=== PATIENT | male | born 1960 | race Caucasian/White ===

== ENCOUNTER 2016-08-19 09:47 | Day surgery (SDC) | payer OTHER ==
[2016-08-19] MEDS ORDERED: LACTATED RINGERS 1,000 ML IV ONE ×2 (10:14→11:25)
[2016-08-19] MEDS ORDERED: MIDAZOLAM 2 MG/2 ML VIAL IVP ONE (10:48)
[2016-08-19] MEDS ORDERED: fentaNYL 250 MCG/5 ML VIAL IVP ONE (10:48)
== END 2016-08-19 09:48 | disposition home or self-care (01) ==
PROC: 0DJD8ZZ Inspection of Lower Intestinal Tract, Via Natural or Artificial Opening Endoscopic (ICD-10-PCS; principal; 2016-08-19 12:00)
DX: Z12.11 Encounter for screening for malignant neoplasm of colon (principal); K57.30 Diverticulosis of large intestine without perforation or abscess without bleeding; K64.8 Other hemorrhoids; Z86.010 Personal history of colon polyps
CPT/HCPCS: 45378; J3010; J7120

== ENCOUNTER 2017-04-21 17:47 | Outpatient (CLI) | payer OTHER ==
[2017-04-21] MEDS ORDERED: IOPAMIDOL-300 50 ML VIAL ONE (18:00)
[2017-04-21] MEDS ORDERED: IOPAMIDOL-300 100 ML VIAL ONE (18:00)
[2017-04-21] MEDS ORDERED: IOPAMIDOL-300 50 ML VIAL PO ONE (18:15)
[2017-04-21] MEDS ORDERED: IOPAMIDOL-300 100 ML VIAL IVP ONE (19:51)
--- NOTE | 2017-04-22 11:14 | CT Report ---
CT ABDOMEN AND PELVIS WITH CONTRAST: 04/21/2017 CLINICAL INDICATION: Left lower quadrant pain. COMPARISON: 11/12/2014 TECHNIQUE: Axial CT images of the abdomen and pelvis were obtained with 100 mL Isovue-300 intravenou sly. Oral contrast was also administered. In accordance with CT protocol optimization, one or more of the following dose reduction techniques w ere utilized for this exam: automated exposure control, adjustment of mA and/or KV based on patient size, or use of iterative reconstructive technique. FINDINGS: Limited evaluation of the lung bases is unremarkable. Abdomen: The liver, spleen, pancreas, and adrenal glands are unremarkable. The kidneys again demons trate small nonobstructing calculi. No hydronephrosis or hydroureter is seen. No bowel dilatation, free gas, or free fluid is present. The appendix is seen in the right lower quadrant, and is normal in caliber. Pelvis: A few scattered diverticula are seen. There is no CT evidence of diverticulitis. No pelvic free fluid or adenopathy is present. The urinary bladder appears unremarkable. Osseous structures demonstrate degenerative changes. IMPRESSION: NO EVIDENT ETIOLOGY FOR PATIENT'S LEFT LOWER QUADRANT PAIN. DIVERTICULOSIS, WITHOUT CT EVIDENCE OF DIVERTICULITIS. NONOBSTRUCTING BILATERAL RENAL CALCULI. NO HYDRONEPHROSIS. JOB #: [id number] EXT JOB #:[id number]
== END 2017-04-21 17:48 | disposition home or self-care (01) ==
LOC: DI 17:47
PROVIDERS: ATTEND Family Medicine
DX: R10.32 Left lower quadrant pain (principal); K57.90 Diverticulosis of intestine, part unspecified, without perforation or abscess without bleeding; N20.0 Calculus of kidney
CPT/HCPCS: 74177; Q9967

== ENCOUNTER 2017-08-15 08:33 | Outpatient (CLI) | payer OTHER | END 2017-08-15 08:34 | disposition critical access hospital (66) | LOC: EMS 08:33 | PROVIDERS: ATTEND Surgery | DX: R10.9 Unspecified abdominal pain (principal) | CPT/HCPCS: A0425; A0429 ==

== ENCOUNTER 2017-08-15 09:09 | Day surgery (SDC) | payer OTHER ==
[2017-08-15] MEDS ORDERED: ONDANSETRON 4 MG/2 ML VIAL IVP STA (09:24)
[2017-08-15] MEDS ORDERED: SODIUM CHLORIDE 0.9% 1,000 ML IV ONE ×2 (09:24→12:25)
[2017-08-15] MEDS ORDERED: HYDROmorphone 1 MG/ML SYRINGE IVP STA (09:24)
[2017-08-15 09:35] LABS: BASOPHILS % (AUTO) 0.2 %; EOSINOPHILS % (AUTO) 0.2 %; HGB - HEMOGLOBIN 16.4 g/dL (14.0-18.0); LYMPHOCYTES # (AUTO) 0.7 10^3/uL (1.5-3.5); LYMPHOCYTES % (AUTO) 7.4 %; MEAN CORPUSCULAR HEMOGLOBIN 32.4 pg (27.0-31.0); MEAN CORPUSCULAR HGB CONC 35.1 g/dL (32.0-36.0); MEAN CORPUSCULAR VOLUME 92.3 fL (80.0-94.0); MEAN PLATELET VOLUME 8.9 fL (7.4-11.4); MONOCYTES # (AUTO) 0.7 10^3/uL (0.0-1.0); MONOCYTES % (AUTO) 6.8 %; NEUTROPHILS # (AUTO) 8.7 10^3/uL (1.5-6.6); NEUTROPHILS % (AUTO) 85.4 %; PLT - PLATELET COUNT 206 10^3/uL (130-450); RED BLOOD COUNT 5.04 10^6/uL (4.70-6.10); WHITE BLOOD COUNT 10.2 x10^3/uL (4.8-10.8)
[2017-08-15 09:47] LABS: ALBUMIN 5.4 g/dL (3.2-5.5); ALBUMIN/GLOBULIN RATIO 2.2 (1.0-2.2); BILIRUBIN,TOTAL 1.5 mg/dL (0.2-1.0); CALCIUM 9.7 mg/dL (8.5-10.3); TOTAL PROTEIN 7.9 g/dL (6.7-8.2)
[2017-08-15] MEDS ORDERED: IOPAMIDOL-300 100 ML VIAL ONE (09:51)
[2017-08-15] MEDS ORDERED: IOPAMIDOL-300 100 ML VIAL IVP ONE (10:18)
[2017-08-15 10:27] LABS: BILIRUBIN,URINE NEGATIVE (NEGATIVE); GLUCOSE, URINE (UA) NEGATIVE (NEGATIVE); KETONES,URINE (UA) 15 mg/dL (NEGATIVE); LEUKOCYTE ESTERASE, URINE NEGATIVE (NEGATIVE); NITRITE,URINE NEGATIVE (NEGATIVE); OCCULT BLOOD,URINE NEGATIVE (NEGATIVE); PROTEIN,URINE TRACE mg/dL (NEGATIVE); UROBILINOGEN,URINE 0.2 (NORMAL) E.U./dL (NORMAL)
[2017-08-15 10:33] LABS: CLARITY,URINE CLEAR (CLEAR)
--- NOTE | 2017-08-15 10:57 | CT Report ---
EXAM: CT ABDOMEN AND PELVIS EXAM DATE: 08/15/2017 10:19 AM. CLINICAL HISTORY: RLQ abdominal pain, clinical concern for acute appendicitis. COMPARISONS: 04/21/2017. TECHNIQUE: Routine helical CT imaging was performed through the abdomen and pelvis. IV contrast: 100M L OF ISOVUE 300. Enteric contrast: No. Reconstructions: Coronal and sagittal. In accordance with CT protocol optimization, one or more of the following dose reduction techniques w ere utilized for this exam: automated exposure control, adjustment of mA and/or KV based on patient s ize, or use of iterative reconstructive technique. FINDINGS: Lung Bases/lower chest: The small hiatal hernia is again noted. Liver: Normal. No masses. Gallbladder/Bile Ducts: Unremarkable. Spleen: Normal. Pancreas: Normal. Adrenal Glands: Normal. Kidneys: Multiple right intra-renal stones and one left intrarenal stone, 2-4 mm again noted. No mass es or hydronephrosis. Peritoneal Cavity/Bowel: There is new enlarged appendiceal tip, 1.3 cm, with hyperemic changes and ne w santy-appendiceal fat stranding, which is located right lateral to the proximal ascending colon. No free or loculated fluid, free air or adenopathy. There is mild colon diverticulosis without diverticu litis; no small bowel dilatation or acute inflammatory process. Pelvic Organs: The bladder and visualized pelvic organs are within normal limits. Vasculature: No aneurysms or other significant abnormality. Bones: No bony destructive abnormality. There is again moderate to severe degenerative disk disease a t L4-L5. IMPRESSION: 1. New finding of acute appendicitis without evidence of perforation or abscess formation. 2. No significant dilatation of the multiple bilateral intrarenal stones without hydronephrosis. 3. Small hiatal hernia, similar to the prior exam. 4. Moderate to severe degenerative disk disease in the L4-L5. [facility] Referring Provider Line: [phone] SITE ID: [id number]
[2017-08-15] MEDS ORDERED: PIPERACILLIN/TAZOBACTAM 3.375 GM in SODIUM CHLORIDE 0.9% MINIBAG 100 ML IV STA (11:13)
--- NOTE | 2017-08-15 11:14 | ED Physician Documentation ---
PD HPI ABD PAIN - Stated complaint Stated Complaint: ABD PX - Chief complaint Chief Complaint: Abd Pain - History obtained from History obtained from: Patient - History of Present Illness Timing - onset: Yesterday Timing - details: Gradual onset Quality: Pain Location: RLQ Worsened by: Moving, Breathing, Palpation Associated symptoms: Nausea. 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 His abdominal pain started yesterday and was more generalized, but became localized to the right lower quadrant this morning. He denies fever or dysuria. He reports nausea, without vomiting. His pain is worse with movement or inspiration. His last oral intake was last night. He has had no abdominal surgery. Review of Systems Constitutional: denies: Fever Nose: denies: Congestion Cardiac: denies: Chest pain / pressure Respiratory: denies: Dyspnea GI: reports: Abdominal Pain, Nausea. denies: Vomiting, Diarrhea : denies: Dysuria Skin: denies: Rash Musculoskeletal: denies: Back pain PD PAST MEDICAL HISTORY - Past Medical History Past Medical History: Yes Cardiovascular: None Respiratory: None Neuro: None Endocrine/Autoimmune: None GI: Colon polyps : Kidney stones HEENT: Chronic vision loss Psych: None Musculoskeletal: None Derm: Eczema - Past Surgical History Past Surgical History: Yes General: Colonoscopy Ortho: Arthroscopic surgery HEENT: Tonsil/Adenoidectomy - Present Medications Home Medications: Ambulatory Orders Medication Instructions Recorded Confirmed Meloxicam [Mobic] 1 DAILY 08/19/16 - Allergies Allergies/Adverse Reactions: Allergies Allergy/AdvReac Type Severity Reaction Status Date / Time No Known Drug Allergies Allergy Verified 04/01/14 18:35 - Social History Does the pt smoke?: No Smoking Status: Never smoker Does the pt drink ETOH?: No Does the pt have substance abuse?: No - Immunizations Immunizations are current?: Yes - POLST Patient has POLST: No PD ED PE NORMAL - Vitals Vital signs reviewed: Yes (normal) - General General: Alert and oriented X 3, Well developed/nourished - HEENT HEENT: Atraumatic, Moist mucous membranes - Neck Neck: No adenopathy, No JVD - Cardiac Cardiac: RRR - Respiratory Respiratory: No respiratory distress, Clear bilaterally - Abdomen Abdomen: Soft, No organomegaly, Other (Tenderness to palpation in the right lower quadrant, with positive Rovsing sign.) - Back Back: No CVA TTP - Derm Derm: No rash - Extremities Extremities: No edema - Neuro Neuro: Alert and oriented X 3, Normal speech Results - Vitals Vitals: Vital Signs - 24 hr 08/15/17 09:13 Temperature 36.5 C Heart Rate 71 Respiratory 16 Rate Blood Pressure 126/76 O2 Saturation 100 Oxygen O2 Source Room air - Labs Labs: Laboratory Tests 08/15/17 08/15/17 08/15/17 09:31 09:31 10:10 WBC 10.2 RBC 5.04 Hgb 16.4 Hct 46.5 MCV 92.3 MCH 32.4 H MCHC 35.1 RDW 13.0 Plt Count 206 MPV 8.9 Neut # 8.7 H Lymph # 0.7 L Pepin # 0.7 Eos # 0.0 Baso # 0.0 Absolute Nucleated RBC 0.00 Nucleated RBC % 0.0 Sodium 137 Potassium 3.7 Chloride 100 L Carbon Dioxide 25 Anion Gap 12.0 BUN 17 Creatinine 1.0 Estimated GFR (MDRD) 77 L Glucose 132 H Calcium 9.7 Total Bilirubin 1.5 H AST 24 ALT 35 Alkaline Phosphatase 78 Total Protein 7.9 Albumin 5.4 Globulin 2.5 Albumin/Globulin Ratio 2.2 Lipase 21 L Urine Color YELLOW Urine Clarity CLEAR Urine pH 8.0 H Ur Specific [place] 1.015 Urine Protein TRACE Urine Glucose (UA) NEGATIVE Urine Ketones 15 H Urine Occult Blood NEGATIVE Urine Nitrite NEGATIVE Urine Bilirubin NEGATIVE Urine Urobilinogen 0.2 (NORMAL) Ur Leukocyte Esterase NEGATIVE Ur Microscopic Review NOT INDICATED Urine Culture Comments NOT INDICATED - Rads (name of study) CT abd/pelvis Radiology: Prelim report reviewed, EMP read contemporaneously, See rad report ( Acute appendicitis, without perforation or abscess.) PD MEDICAL DECISION MAKING - ED course Complexity details: reviewed results, re-evaluated patient, considered differential, d/w patient, d/w cognos consultant ED course: The patient's presentation is most consistent with acute appendicitis, confirmed on CT scan. CT does not reveal evidence of perforation or abscess. Treatment in the emergency department included administration of normal saline IV, Zofran 4 mg IV, hydromorphone 1 mg IV, and Zosyn 3.375 g IV. I discussed his condition with Dr. Goodwin who plans operative intervention. Departure - Departure Disposition: ED Transfer to [facility] Clinical Impression: Appendicitis Qualifiers: Appendicitis type: acute appendicitis Acute appendicitis type: unspecified acute appendicitis type Qualified Code(s): K35.80 - Unspecified acute appendicitis Condition: Stable
--- NOTE | 2017-08-15 12:07 | SURGERY HX AND PHYSICAL(T) ---
Surgical History & Physical - Chief Complaint/HPI Chief Complaint: Right lower quadrant pain accompanied by nausea History of Present Illness: The patient is an exceedingly pleasant 56-year-old male well-known to me ev - PMH/PSH/Social Hx Does the pt have a hx of MRSA?: No Neurological History: None Eyes, Ears, Nose, Throat: Chronic vision loss Cardiovascular: None Respiratory: None Skin: Eczema Endocrine/Autoimmune: None Gastrointestinal: Colon polyps Urinary: Kidney stones Musculoskeletal: None Psychiatric: None General: Colonoscopy Orthopedic: Arthroscopic surgery Eyes Ears Nose Throat (EENT): Tonsil/Adenoidectomy Smoking Status: Never smoker Does the pt drink ETOH?: Yes Frequency: Weekly Number: 2 (glasses of wine per week) Does the pt have substance abuse?: No - Family Hx Family Hx: Unremarkable - Home Meds and Allergies Home Medications: Meloxicam [Mobic] 1 DAILY 08/19/16 Allergies/Adverse Reactions: Allergies Allergy/AdvReac Type Severity Reaction Status Date / Time No Known Drug Allergies Allergy Verified 04/01/14 18:35 - Review of Systems Constitutional: No: Fatigue, Fever, Chills, Malaise, Weakness, Poor appetite, Diaphoresis, Night sweats, Weight gain, Weight loss, Other HEENT: No: Headaches, Visual changes, Eye pain, Dysphasia, Sinus congestion, Post nasal drip, Sore throat, Other Skin: No: Cyanosis, Jaundice, Mottled, Pallor, Diaphoresis, Dryness, Bruising, Puritis, Rash, Other Cardiac: No: AFIB, CAD, CHF, HTN, PA, Syncope, Hyperlipidemia, Mitral valve stenosis, Aortic stenosis, Valve insufficiency, Pulmonary hypertension Respiratory: No: Shortness of breath, Cough, Sputum, Other Gastrointestinal: No: Nausea, Vomiting, Difficulty swallowing, Abdominal pain, Flatus, Constipation, Diarrhea, Melena, Hematochechezia, Other Gentinourinary: No: Dysuria, Frequency, Burning, Pain, Urgency, Incontinence, Hematuria, Retention, Flank pain, Other Neurological: No: Dizziness, Headache, Numbness, Syncope, Tingling, Weakness, Urinary changes, Bowel changes, Other Musculoskeletal: Muscle pain, Back pain, Other (Occasional aches and pains for which he takes the Mobic. VERY active.) Hematologic: No: Anemia, Bleeding or bruising, Other Psychiatric: No: Depression, Anxiety, Other Endocrinologic: No: Sweating, Cold or heat intolerances, Polyuria, Polydipsia, Other Allergies: No: Asthma, Hives, Eczema, Rhinitis, Other - Vital Signs Heart Rate: 71 Blood Pressure: 126/76 Temperature: 36.5 C Respiratory Rate: 16 O2 Saturation: 100 Weight (kg): 78.018 kg Height: 1.8 m - Patient Review Patient Review: Problems were reviewed with the patient during this visit. Medications were reviewed with the patient during this visit. Allergies were reviewed this patient during this visit. Pertinent Tests Reviewed: All pertitent test for this patient were reviewed. - Assessment & Plan Assessment and Plan: General: 56-year old male evaluated in room 8 [facility]'s emergency department lying on the bed, appears stated age, well developed, well nourished HEENT: Normocephalic, atraumatic, extraocular movement intact, mucous membranes pink and slightly dry, sclera anicteric and not injected Neck: Good motion without obvious mass or bruit Cardiac: Regular rate and rhythm without rub, slightly tachycardic, gallop, or murmur Chest: Clear to auscultation bilaterally Abdomen: Soft, tender at McBurney's point, no peritoneal findings, normoactive bowel sounds, no hepatomegaly, no splenomegaly, no hernia Genitourinary: Deferred Rectal: Deferred Extremities: No gross neurovascular problem, no clubbing, cyanosis or edema Gait: Not evaluated Psychiatric: Alert and oriented to person place and time, asks and answers questions appropriately, mood and affect appropriate Labs: Reviewed and patient has a normal white count with a slight left shift there are some abnormalities on his CMP but they are of no clinical significance Radiology: Report finds an inflamed and enlarged appendix in the right lower quadrant that is not ruptured, the films were reviewed personally Assessment: Acute non-perforated appendicitis Plan: Laparoscopic appendectomy, possible open appendectomy. The indications, procedure, alternatives including no surgery, possible risks including infection (deep or superficial), bleeding requiring transfusion (with all of its risks), and were fully explained to the patient and all questions answered. I also explained the pathophysiology. I explained that following the surgery I did not want him lifting anything over 15 pounds for 6 weeks to allow for optimal healing and to decrease the likelihood that a hernia would occur. All questions were fully answered. Verbal and written consent was obtained. The patient, in preparation for surgery will be nothing by mouth, and has already received 3.375 g of Zosyn in the emergency department. I asked him to contact me with any surgical questions and his concerns and he stated that he would. I asked him to let me know if there is any way we can make his say at [facility] more comfortable and he stated that he would let me know. The plan is to do this operation as an outpatient procedure and to discharge him home following the procedure. 45 minutes of [id number] time spent with the patient, over 80% in discussion and coordination of his care Toni disclaimer: This document was created in part using voice recognition technology. Because of the inherent limitations of the system ([employer]'s [employer] user manual states that the licensee understands that speech recognition is a statistical process and that recognition errors are inherent in the process), occasional same sounding word substitutions and grammatical errors do occur and persist despite proofreading. Please read this document for context.
[2017-08-15] MEDS ORDERED: PROPOFOL 200 MG/20 ML VIAL IVP ONE (12:30)
[2017-08-15] MEDS ORDERED: ROCURONIUM 50 MG/5 ML VIAL IVP ONE (12:30)
[2017-08-15] MEDS ORDERED: MIDAZOLAM 2 MG/2 ML VIAL IVP ONE (12:30)
[2017-08-15] MEDS ORDERED: fentaNYL 100 MCG/2 ML VIAL IVP ONE (12:30)
[2017-08-15] MEDS ORDERED: LIDOCAINE-MPF 2% 5 ML VIAL IM ONE (12:30)
[2017-08-15] MEDS ORDERED: KETOROLAC 30 MG/ML VIAL IVP ONE (12:30)
[2017-08-15] MEDS ORDERED: NEOSTIGMINE 1 MG/1 ML 10 ML MDV IVP ONE (12:30)
[2017-08-15] MEDS ORDERED: ACETAMINOPHEN 1,000 MG/100 ML 100 ML IV ONE (12:30)
[2017-08-15] MEDS ORDERED: GLYCOPYRROLATE 1 MG/5 ML VIAL IVP ONE (12:30)
[2017-08-15] MEDS ORDERED: DEXAMETHASONE 4 MG/ML VIAL IVP ONE (12:30)
[2017-08-15] MEDS ORDERED: SUCCINYLCHOLINE 200 MG/10 ML VIAL IVP ONE (12:30)
[2017-08-15] MEDS ORDERED: ONDANSETRON 4 MG/2 ML VIAL IVP ONE (12:30)
[2017-08-15] MEDS ORDERED: BUPIVACAINE 0.5% PF 30 ML VIAL INFIL ONE (13:08)
--- NOTE | 2017-08-15 14:29 | OPERATIVE REPORT ---
Operative Report - General Procedure Date: 08/15/17 Planned Procedure: Laparoscopic appendectomy Pre-Op Diagnosis: Acute nonperforated appendicitis Procedure Performed: Laparoscopic appendectomy and umbilical herniorrhaphy (without mesh) Post Op Diagnosis: Acute nonperforated appendicitis with mild necrosis at the tip and dense ad - Procedure Note Primary Surgeon: Marlon Melo MD Secondary Surgeon: Renny Campo Anesthesia Technique: General ET tube, Local (30 mL of half percent Marcaine) IV Fluids (mL): 700 Estimated Blood Loss (mL): 10 Complications: None. - Other Other Information/Narrative: OPERATIVE DESCRIPTION/REPORT: After verbal and written informed consent was obtained detailing the risks of infection, bleeding requiring transfusion with its risks, and , and after I met with the patient confirming the surgery and the site of the surgery, the patient was brought to the operative suite and placed supine on the operating table. Great care was taken to avoid pressure points to prevent pressure necrosis or nerve injury. Monitoring devices were applied along with TEDs and pneumatic compressive stockings (to prevent DVT). The patient received preoperative antibiotics for surgical prophylaxis. Renny Campo sedated and anethetized the patient for the entire procedure. The patient was prepped and draped in the usual sterile manner.. A "time in" then confirmed that the paitient was identified with 3 identifiers (name, birthdate and medical record number), the history and physical was in the chart, the signed consent confirming the procedure was in the chart, the patient was in the correct position, the aforementioned prophylactic measures were in place or given, we had the correct personel and equipment to complete the procedure and that anesthesia, surgery and nursing were given an opportunuty to express any concerns. With the agreement of everyone in the room, we proceeded with the operation. A 2 cm umbilical midline incision was made. Dissection was carried out down to the small umbilical hernia and the fascial defect was defined using a combination of sharp dissection as well as Bovie electrocautery. The fascia was then cleared circumferentially of subcutaneous tissue using a tonsil clamp. The hernia defect was used to gain entry into the abdominal cavity without incident. A 12 mm blunt tipped balloon tipped Marina port was placed into the abdomen and the balloon inflated to keep it in place. The pneumoperitoneum was then established using carbon dioxide insufflation to a steady state pressure of 15 mmHg. Two additional 5 mm ports were placed in the midline above and below the umbilicus. The patient was then rotated slightly to their left and slightly head down ( Trendelenberg). The appendix was difficult to find as it was enveloped in thickened omentum. The appendix was also somewhat retrocecal and there were adhesions of the terminal ileum and right colon to the right abdominal wall. These adhesions were taken down using traction-countertraction as well as serial application of the LigaSure. The appendiceal tip appeared to be dark consistent with early necrosis. The appendix was then dissected back from the tip to the base of the cecum using traction-countertraction as well as LigaSure. This was somewhat difficult due to the dense adhesions. As the dissection continued to the base the appendix the mesentery was taken using sequential application of the LigaSure. At this point the appendix was isolated. The base of the appendix and mesentery were then stapled and transected using a laparoscopic vascular stapler. Visualization of the staple line revealed absolutely no bleeding or leak of bowel contents. The appendix was then placed into an endopouch for the remainder of the case. The patient was then rotated to lie flat. The right side of the patient's abdominal was copiously irrigated using 2 L of warm sterile saline The fascia and skin were then injected with the 30 mL of % marcaine for pain control. The insufflation was released and the ports removed. The Endopouch containing the appendix was removed and the contents of the Endopouch noted to be particularly foul-smelling. The fascial defect was then approximated using 2 figure of 8 0-Vicryl suture thus repairing the umbilical hernia. The skin incisions were approximated with 4-0 Monocryl in a subcuticular fashion. At the umbilicus the skin was sutured down to the fascia in order to give him a "innie." The surgical prep was removed, the skin was prepped with benzoin and steristrips were applied. A dressing was applied. At this point a time out was performed that confirmed that all the counts were correct, the procedure that was performed, the blood loss, the urine output (not measured), the IV fluids administered, and the patients condition. Having tolerated the procedure well , the patient was subsequently extubated and taken to recovery room in good and stable condition.
[2017-08-15 15:45] VITALS: BP 112/78
[2017-08-15] MEDS ORDERED: oxyCOD/ACETAMIN 5 MG/325 MG TABLET PO ONE (15:49)
== END 2017-08-15 12:01 | disposition home or self-care (01) ==
LOC: EDUNIT# → ED 09:09 → SDS 12:00
PROVIDERS: ATTEND Surgery
PROC: 0DTJ4ZZ Resection of Appendix, Percutaneous Endoscopic Approach (ICD-10-PCS; principal; 2017-08-15 12:00)
DX: K35.80 Unspecified acute appendicitis (principal); K42.9 Umbilical hernia without obstruction or gangrene; N20.0 Calculus of kidney
CPT/HCPCS: 36415; 44970; 74177; 80053; 81003; 83690; 85025; 96365; 96375; 99284; A9270; J0131; J1170; Q9967; 81001; 87086; 99283

== ENCOUNTER 2017-08-22 09:00 | Outpatient (CLI) | payer OTHER | END 2017-08-22 09:01 | disposition home or self-care (01) | LOC: LAB.R 09:00 | PROVIDERS: ATTEND Surgery | DX: L03.311 Cellulitis of abdominal wall (principal) | CPT/HCPCS: 87070; 87077; 87205 ==

== ENCOUNTER 2018-02-02 12:45 | Outpatient (CLI) | END 2018-02-02 12:46 | disposition home or self-care (01) ==